=== PATIENT | female | born 1945 | race Caucasian/White ===

== ENCOUNTER → 2018-01-10 09:24 | Outpatient (CLI) | payer MEDICARE, SELFPAY ==
[2018-01-10 10:13] LABS: Basophils # 0.1 K/mm3 (0-0.2); Basophils % 0.6 % (0.1-2.0); Eosinophils # 0.1 K/mm3 (0.0-0.4); Eosinophils % 1.4 % (0.1-12.0); Hematocrit 29.2 % (37.0-47.0); Hemoglobin 9.3 g/dL (12.2-16.2); Lymphocytes # 1.8 K/mm3 (0.7-4.5); Lymphocytes % 21.4 K/mm3 (10-50); Mean Corpuscular HGB Conc 31.8 g/dL (31.8-35.4); Mean Corpuscular Hemoglobin 26.7 pg (27.0-31.2); Mean Corpuscular Volume 83.7 fl (81-99); Mean Platelet Volume 9.4 fl (7.4-10.4); Monocytes # 0.6 K/mm3 (0.1-1.0); Monocytes % 6.5 % (1.7-9.3); Neutrophils # 5.9 K/mm3 (1.8-7.8); Platelet Count 384 K/mm3 (142-424); Red Blood Count 3.49 M/mm3 (4.20-5.40); Red Cell Distribution Width 14.3 % (11.5-17.5); White Blood Count 8.4 K/mm3 (4.8-10.8)
[2018-01-10 11:31] LABS: Alanine Aminotransferase 16 U/L (12-78); Albumin Level 3.5 gm/dL (3.4-5.0); Albumin/Globulin Ratio 0.9 (1.1-1.8); Alkaline Phosphatase 104 U/L (46-116); Aspartate Amino Transferase 12 U/L (15-37); Bilirubin,Total 0.4 mg/dL (0.2-1.0); Blood Urea Nitrogen 13 mg/dL (7-18); C-Reactive Protein 2.2 mg/L (0.0-0.9); Calcium 9.5 mg/dL (8.5-10.1); Carbon Dioxide 26 mmol/L (21.0-32.0); Chloride 95 mmol/L (98-107); Creatinine,Serum 0.76 mg/dL (0.55-1.02); Estimated Glomerular Filt Rate 75 ml/min (>60); Ferritin 14 ng/mL (8-388); GFR (African American) 91 ML/MIN (>60); Globulin 3.7 gm/dl (1.3-3.2); Glucose 162 mg/dL (74-106); Sodium 129 mmol/L (136-145); Total Protein,Serum 7.2 gm/dL (6.4-8.2)
[2018-01-10 12:06] LABS: Erythrocyte Sedimentation Rate 59 mm/hr (0-30)
[2018-01-11 08:31] LABS: Iron 116 ug/dL (27-139); UIBC 347 ug/dL (118-369)
[2018-01-11 10:16] LABS: Iron Saturation 25 % (15-55); Vitamin B12 383 pg/mL (232-1245); Vitamin D 25 Hydroxy 23.6 ng/mL (30.0-100.0)
[2018-01-12 17:16] LABS: Cytoplasmic (C-ANCA) <1:20 titer (Neg:<1:20)
[2018-01-12 18:41] LABS: Perinuclear (P-ANCA) <1:20 titer (Neg:<1:20)
== END ==
PROVIDERS: PCP Family Medicine; Visit Provider Nurse Practitioner Acute Care
DX: K56.690 Other partial intestinal obstruction (principal); D64.9 Anemia, unspecified
CPT/HCPCS: 36415; 80053; 82607; 82652; 82728; 83540; 83550; 85025; 85651; 86140; 86256; 86671

== ENCOUNTER → 2018-03-15 11:34 | Outpatient (CLI) | payer MEDICARE, SELFPAY ==
--- NOTE | 2018-03-15 11:39 | XR_ITS ---
EXAM: XR lumbar spine min 4V HISTORY: Low back pain ITS.REASON: LUMBAGO ORDERING PHYSICIAN: Hollie Henry PATIENT AGE: 72 years COMPARISON: None FINDINGS: There is mild levoscoliosis. Multilevel degenerative disc disease is present from L2 to S1 most severe at L2-L3 with endplate sclerosis and subchondral cystic changes. There is mild retrolisthesis of L2 on L3 of 5 mm. Facet sclerotic changes are also present from L2 to S1 suggesting facet arthritic change. No fracture or dislocation. No lytic or blastic change. Incidental note is made of gallstones. IMPRESSION: 1. Lumbar spondylosis with degenerative disc disease worse at L2-L3 with associated facet arthritic change. 2. Cholelithiasis
== END ==
PROVIDERS: PCP Family Medicine; Visit Provider Nurse Practitioner
DX: M54.41 Lumbago with sciatica, right side (principal); M54.42 Lumbago with sciatica, left side
CPT/HCPCS: 72110

== ENCOUNTER → 2018-07-25 14:00 | Outpatient (CLI) | payer MEDICARE, SELFPAY ==
--- NOTE | 2018-07-25 14:03 | MR_ITS ---
MR lumbar spine wo con, MR 3-d myelogram/MRCP HISTORY: LBP [id number]. No HX Lumbar surgery. No injury. ITS.REASON: LUMBAGO WITH SCIATICA ORDERING PHYSICIAN: Taqueria Angel MD PATIENT AGE: 72 years Comparison: X-RAY 03-15-18 TECHNIQUE: Standard multiplanar multiecho sequences are performed without contrast. 3-D MIP and myelographic images are also rendered and reviewed FINDINGS: There is normal alignment. The spinal cord ends at the L1 level. L1-L2: Degenerative disc disease with bulging disc with facet and ligamentum hypertrophy with mild bilateral lateral recess and foraminal narrowing. L2-L3: Severe degenerative disc disease with type I endplate changes and endplate osteophyte formation. There is 4 mm retrolisthesis of L2 on L3 with bulging disc along with facet and ligamentum hypertrophy with moderate bilateral lateral recess narrowing and moderate bilateral foraminal narrowing greater on the right. There is canal stenosis at this level at 8 mm. L3-L4: Degenerative disc disease with bulging disc with moderate facet and ligamentum flavum hypertrophy with moderate bilateral lateral recess and foraminal narrowing and borderline narrowing of the canal L4-L5: Degenerative disc disease with concentric bulging disc which is eccentric toward the left with moderate to severe bilateral lateral recess and foraminal narrowing which is greater on the left. There is minimal anterolisthesis of L4 on L5 of 2 to 3 mm. There is canal stenosis at this level L5-S1: Bulging disc with facet and ligamentum flavum hypertrophy with moderate to severe foraminal narrowing on the left and moderate foraminal narrowing on the right from facet hypertrophic change and the bulging disc. No extruded herniated disc. IMPRESSION: Abnormal MRI lumbar spine with multilevel lumbar spondylosis from L1 to S1 with degenerative disc disease, bulging discs, facet and ligamentum hypertrophy, lateral recess and foraminal narrowing as well as canal stenosis. Please see above for detailed description at each level. The canal narrowing is most severe at L4-L5. No extruded herniated disc evident.
== END ==
PROVIDERS: PCP Family Medicine; Visit Provider Family Medicine
DX: M54.42 Lumbago with sciatica, left side (principal)
CPT/HCPCS: 72148; 76376

== ENCOUNTER → 2018-12-03 12:55 | Outpatient (POV) | payer MEDICARE, SELFPAY ==
[2018-12-03 13:12] VITALS: BP 183/65; PULSE 79; RESP 18; O2SAT 98; BMI 29.8
--- NOTE | 2018-12-04 16:15 | HMH.PMCON ---
Assessment and Plan (1) Facet arthropathy Current visit: Yes Status: Chronic Category: Medical Code(s): M47.819 - Spondylosis without myelopathy or radiculopathy, site unspecified (2) Spondylosis Current visit: Yes Status: Chronic Category: Medical Code(s): M47.9 - Spondylosis, unspecified (3) Degenerative disc disease Current visit: Yes Status: Chronic Category: Medical - Assessment and plan all Dx Assessment and Plan for all problems:: We will schedule the patient for medial branch block at L4-5 L5-S1 bilaterally. I believe would be beneficial given her symptomology. She is failed chiropractic therapy, medications, anti-inflammatories. She is continuing a home stretching program. She is not on any blood thinners. We will follow-up with the patient after injection reassess her symptoms at that time. Dr. Sebastian has reviewed this note and agrees with this plan of care. This note was dictated using voice recognition software and may contain errors or omissions HPI - Data of Consult Consult date: 12/03/18 Requesting Physician: Amber Caceres APRN Primary Care Provider: Taqueria Angel MD - Consult Narrative Reason for consult: Back pain History of present illness: Ms. Carpio is a 73 year old female who presents today for consultation in regards to her back pain. She had a sudden onset of it and now it intermittently comes and goes. She states hot showers decrease her pain well activity increases her pain she rates her pain a 6 out of 10. She has moderate relief from her chiropractor. Patient does have a MRI showing degenerative disc disease, spondylosis, ligamentum flavum hypertrophy. Patient has been seen by Dr. Heaton and was referred to us for injection therapy. Patient is currently on gabapentin. She is been taking anti-inflammatories with no success. Patient has no radiation of pain. Turning and twisting makes her pain much worse she is a positive Kemps test and positive facet loading. CC: Amber Caceres APRN [facility] History I have reviewed the patient's past medical history: Yes Medical History: Reports:: Diabetes Mellitus Type 2, Hypertension, Lung Disease Denies:: Diabetes Mellitus Type 1, Internal Pacemaker, Seizures *Have you ever received a pneumonia vaccine?: Yes *Have you received a flu vaccine this season?: Yes Other Surgeries: No: Pacemaker Amputation: No Fractures: No - *Social History Smoking Status: Never smoker Alcohol Intake: never Alcohol Intake Frequency:: holidays/special occasions only *Occupational Status:: other Housing: house Household Members: other *Travel in the last 8 weeks: None Family Hx:: Unable to obtain Review of Systems - Review of Systems ROS General: no recent weight change, no fever, no sleep disturbances Respiratory: no cough, no shortness of air, no recurring pulmonary infections Cardiovascular/Peripheral Vascular: No chest pain, No palpitations, no edema, no shortness of breath. Gastrointestinal: no incontinence, normal bowel movements reported Genitourinary: no incontinence Musculoskeletal: Back pain Psychiatric: normal mood/ affect Neurological: [denies weakness in extremities], [denies balance issues] Meds Home Medications Medication Instructions Recorded Confirmed Type albuterol 90 mcg/actuation aerosol 1 puff INHALATION NEEDED PRN 12/01/17 01/19/18 History inhaler budesonide-formoterol HFA 160 2 puff INHALATION BID 12/01/17 01/19/18 History mcg-4.5 mcg/actuation aerosol inhaler ferrous sulfate 325 mg (65 mg 325 mg PO DAILY tab 12/01/17 01/19/18 History iron) tablet gemfibrozil 600 mg tablet 600 mg PO BID 12/01/17 01/19/18 History levothyroxine 25 mcg capsule 25 mcg PO DAILY 12/01/17 01/19/18 History lisinopril 10 mg tablet 10 mg PO DAILY 12/01/17 01/19/18 History metformin 500 mg tablet 500 mg PO BID 12/01/17 01/19/18 History omeprazole 40 mg capsule,delayed 40 mg PO DAILY
--- NOTE | 2018-12-04 16:21 | P.CONS_ITS ---
Assessment and Plan (1) Facet arthropathy Current visit: Yes Status: Chronic Category: Medical Code(s): M47.819 - Spondylosis without myelopathy or radiculopathy, site unspecified (2) Spondylosis Current visit: Yes Status: Chronic Category: Medical Code(s): M47.9 - Spondylosis, unspecified (3) Degenerative disc disease Current visit: Yes Status: Chronic Category: Medical - Assessment and plan all Dx Assessment and Plan for all problems:: We will schedule the patient for medial branch block at L4-5 L5-S1 bilaterally. I believe would be beneficial given her symptomology. She is failed chiropractic therapy, medications, anti-inflammatories. She is continuing a home stretching program. She is not on any blood thinners. We will follow-up with the patient after injection reassess her symptoms at that time. Dr. Sebastian has reviewed this note and agrees with this plan of care. This note was dictated using voice recognition software and may contain errors or omissions HPI - Data of Consult Consult date: 12/03/18 Requesting Physician: Amber Caceres APRN Primary Care Provider: Taqueria Angel MD - Consult Narrative Reason for consult: Back pain History of present illness: Ms. Carpio is a 73 year old female who presents today for consultation in regards to her back pain. She had a sudden onset of it and now it intermittently comes and goes. She states hot showers decrease her pain well activity increases her pain she rates her pain a 6 out of 10. She has moderate relief from her chiropractor. Patient does have a MRI showing degenerative disc disease, spondylosis, ligamentum flavum hypertrophy. Patient has been seen by Dr. Heaton and was referred to us for injection therapy. Patient is currently on gabapentin. She is been taking anti-inflammatories with no success. Patient has no radiation of pain. Turning and twisting makes her pain much worse she is a positive Kemps test and positive facet loading. CC: Amber Caceres APRN [facility] History I have reviewed the patient's past medical history: Yes Medical History: Reports:: Diabetes Mellitus Type 2, Hypertension, Lung Disease Denies:: Diabetes Mellitus Type 1, Internal Pacemaker, Seizures *Have you ever received a pneumonia vaccine?: Yes *Have you received a flu vaccine this season?: Yes Other Surgeries: No: Pacemaker Amputation: No Fractures: No - *Social History Smoking Status: Never smoker Alcohol Intake: never Alcohol Intake Frequency:: holidays/special occasions only *Occupational Status:: other Housing: house Household Members: other *Travel in the last 8 weeks: None Family Hx:: Unable to obtain Review of Systems - Review of Systems ROS General: no recent weight change, no fever, no sleep disturbances Respiratory: no cough, no shortness of air, no recurring pulmonary infections Cardiovascular/Peripheral Vascular: No chest pain, No palpitations, no edema, no shortness of breath. Gastrointestinal: no incontinence, normal bowel movements reported Genitourinary: no incontinence Musculoskeletal: Back pain Psychiatric: normal mood/ affect Neurological: [denies weakness in extremities], [denies balance issues] Meds Home Medications Medication Instructions Recorded Confirmed Type albuterol 90 mcg/actuation aerosol 1 puff INHALATION NEEDED PRN 12/01/17 01/19/18 History inhaler budesonide-formoterol HFA 160 2 puff INHALATION BID 12/01/17 01/19/18 Hi
== END ==
PROVIDERS: PCP Family Medicine; Visit Provider Clinical Nurse Specialist Family Health
DX: M47.819 Spondylosis without myelopathy or radiculopathy, site unspecified (principal); M47.816 Spondylosis without myelopathy or radiculopathy, lumbar region
CPT/HCPCS: 99202

== ENCOUNTER → 2019-01-07 10:33 | Outpatient (POV) | payer MEDICARE, SELFPAY ==
[2019-01-07 11:03] VITALS: BP 127/61; PULSE 79; RESP 18; O2SAT 98; BMI 28.0
--- NOTE | 2019-01-07 12:48 | P.CONS_ITS ---
[facility] Pain Management SOAP Note Subjective:: Patient is a pleasant 73-year-old white female who presents today for follow-up after medial branch block. Patient rates her pain a 0 out of 10. Overall doing extremely well she has some stiffness she discussed chiropractors and massage therapy with me. At this time patient would like to see how long her medial branch block lasts for her. I discussed both repeat injections and rhizotomy. ROS General: no recent weight change, no fever, no sleep disturbances Respiratory: no cough, no shortness of air, no recurring pulmonary infections Cardiovascular/Peripheral Vascular: No chest pain, No palpitations, no edema, no shortness of breath. Gastrointestinal: no incontinence, normal bowel movements reported Genitourinary: no incontinence Musculoskeletal: Back pain Psychiatric: normal mood/ affect Neurological: [denies weakness in extremities], [denies balance issues] Objective:: Physical Exam General: Alert and oriented x3, no acute distress, pleasant and cooperative, [on room air] Lungs: Resps E/U, Symmetrical chest expansion, Eyes: PERRL Musculoskeletal: Flexion and extension of lumbar spine somewhat guarded secondary to pain, deep tendon reflexes normal, strength in upper and lower extremities [5/5], [abnormal gait noted] positive Kemps test bilateral lumbar facet loading Neurological: speech clear, nutter up equal, no gross sensory deficits Assessment:: Degenerative disc disease lumbar spine with lumbar spondylosis and facet arthropathy Plan:: Patient is going to see how long this medial branch block last for her we will schedule I month follow-up to see how she is doing. She is been instructed to call the office if she has any issues prior to this. Moving forward she may need another medial branch block in the future. Dr. Sebastian has reviewed this note and agrees with this plan of care. This note was dictated using voice recognition software and may contain errors or omissions [facility] History I have reviewed the patient's past medical history: Yes Medical History: Reports:: Diabetes Mellitus Type 2, Hypertension, Lung Disease Denies:: Cancer, Diabetes Mellitus Type 1, Internal Pacemaker, Seizures *Have you ever received a pneumonia vaccine?: Yes *Have you received a flu vaccine this season?: No Other Medical History: Denies: Blood Transfusion Reaction Other Surgeries: No: Pacemaker Amputation: No Fractures: No - *Social History Smoking Status: Never smoker Alcohol Intake: current Alcohol Intake Frequency:: holidays/special occasions only *Occupational Status:: other Housing: house Household Members: other *Travel in the last 8 weeks: None Family Hx:: Cancer
== END ==
PROVIDERS: PCP Family Medicine; Visit Provider Clinical Nurse Specialist Family Health
DX: M51.36 Other intervertebral disc degeneration, lumbar region (principal); M47.816 Spondylosis without myelopathy or radiculopathy, lumbar region; M54.06 Panniculitis affecting regions of neck and back, lumbar region; E11.9 Type 2 diabetes mellitus without complications; I10 Essential (primary) hypertension
CPT/HCPCS: 99212

== ENCOUNTER → 2020-10-12 12:28 | Outpatient (CLI) | payer MEDICARE, SELFPAY ==
--- NOTE | 2020-10-12 12:32 | XR_ITS ---
PROCEDURE: XR CHEST PORTABLE CLINICAL HISTORY: COVID OUTPATIENT COMPARISON: CR CXR CHEST(2 VIEWS-NOT PORTABLE) from 07/15/2015 FINDINGS: The cardiomediastinal silhouette and pulmonary vascularity are within normal limits. The lungs are clear without infiltrates, suspicious nodules, or pleural effusions. No acute bony abnormalities. IMPRESSION: No acute findings. Dictated by: Jovita Evangelista 10/12/2020 12:48 Jovita Evangelista in OV 10/12/2020 12:48
[2020-10-12 13:19] LABS: Adenovirus,PCR Not Detected (NotDetected); Bordetella Pertussis Not Detected (NotDetected); Chlamydophila Pneumoniae, PCR Not Detected (NotDetected); Coronavirus 229E Not Detected (NotDetected); Coronavirus NL63 Not Detected (NotDetected); Coronavirus OC43 Not Detected (NotDetected); Coronovirus HKU1,PCR Not Detected (NotDetected); Human Metapneumovirus Not Detected (NotDetected); Influenza A, PCR Not Detected (NotDetected); Influenza AH1, 2009 Not Detected (NotDetected); Influenza AH1, PCR Not Detected (NotDetected); Influenza AH3,PCR Not Detected (NotDetected); Influenza B, PCR Not Detected (NotDetected); Mycoplasma Pneumoniae, PCR Not Detected (NotDetected); Parainfluenza 1, PCR Not Detected (NotDetected); Parainfluenza 2, PCR Not Detected (NotDetected); Parainfluenza 3, PCR Not Detected (NotDetected); Parainfluenza 4, PCR Not Detected (NotDetected); Respiratory Syncytial Virus Not Detected (NotDetected); Rhinovirus/Enterovirus Not Detected (NotDetected)
[2020-10-12 15:04] LABS: Coronavirus 19, PCR Detected (NotDetected)
== END ==
PROVIDERS: PCP Family Medicine; Visit Provider Nurse Practitioner
DX: U07.1 COVID-19; Z20.822 Contact with and (suspected) exposure to COVID-19
CPT/HCPCS: 71045; 87581; 87633; 87798

== ENCOUNTER → 2020-10-13 10:16 | Outpatient (CLI) | payer MEDICARE, SELFPAY ==
[2020-10-13] VITALS (8 sets, daily range): BP systolic 145–169; BP diastolic 61–71; PULSE 65–74; RESP 15–18; TEMP 36.6–36.7; O2SAT 94–98
== END ==
PROVIDERS: PCP Nurse Practitioner; Visit Provider Nurse Practitioner
DX: U07.1 COVID-19 (principal)
CPT/HCPCS: 96365

== ENCOUNTER 2020-11-03 08:15 | Day surgery (SDC) | payer MEDICARE, SELFPAY ==
[2020-10-29 15:08] VITALS: BMI 26.6
[2020-11-03 09:39] VITALS: BP 147/60; PULSE 64; RESP 18; TEMP 36.2; O2SAT 96
[2020-11-03 09:58] LABS: POC Glucose,Bedside 142 (70-110)
[2020-11-03 11:05] VITALS: BP 178/70; PULSE 55; RESP 16; O2SAT 98
[2020-11-03 11:10] VITALS: BP 164/72; PULSE 58; RESP 16; O2SAT 100
[2020-11-03 11:15] VITALS: BP 153/72; PULSE 58; RESP 16; O2SAT 99
[2020-11-03 11:20] VITALS: BP 162/81; PULSE 55; RESP 16; O2SAT 99
[2020-11-03 11:23] VITALS: BP 145/70; PULSE 64; RESP 16; TEMP 36.6; O2SAT 99
== END 2020-11-03 11:44 | disposition home or self-care (01) ==
LOC: OR 08:17
PROVIDERS: PCP Family Medicine; Visit Provider Ophthalmology
DX: H25.813 Combined forms of age-related cataract, bilateral (principal); H53.149 Visual discomfort, unspecified; D23.111 Other benign neoplasm of skin of right upper eyelid, including canthus; E11.9 Type 2 diabetes mellitus without complications; I10 Essential (primary) hypertension; E78.5 Hyperlipidemia, unspecified; E03.9 Hypothyroidism, unspecified; Z79.84 Long term (current) use of oral hypoglycemic drugs; Z79.899 Other long term (current) drug therapy
CPT/HCPCS: 66984; 82962; V2632

== ENCOUNTER 2020-11-17 07:03 | Day surgery (SDC) | payer MEDICARE, SELFPAY ==
[2020-11-11 13:32] VITALS: BMI 25.8
[2020-11-17] VITALS (7 sets, daily range): BP systolic 141–192; BP diastolic 65–80; PULSE 58–69; RESP 16; TEMP 36.3–36.4; O2SAT 96–100
--- NOTE | 2020-11-17 09:30 | SUR.OPER ---
During procedure, Dr. Frances removed a right upper eyelid lesion. Lesion sent for pathology.
== END 2020-11-17 09:31 | disposition home or self-care (01) ==
LOC: OR 07:04
PROVIDERS: PCP Family Medicine; Visit Provider Ophthalmology
DX: H25.813 Combined forms of age-related cataract, bilateral (principal); D23.111 Other benign neoplasm of skin of right upper eyelid, including canthus; L91.0 Hypertrophic scar; E11.9 Type 2 diabetes mellitus without complications; Z79.899 Other long term (current) drug therapy; Z79.84 Long term (current) use of oral hypoglycemic drugs
CPT/HCPCS: 66984; 67840; 88305; V2632

== ENCOUNTER → 2021-03-18 09:21 | Outpatient (CLI) | payer MEDICARE, SELFPAY ==
[2021-03-18 09:49] LABS: Adenovirus,PCR Not Detected (NotDetected); Bordetella Pertussis Not Detected (NotDetected); Chlamydophila Pneumoniae, PCR Not Detected (NotDetected); Coronavirus 19, PCR Not Detected (NotDetected); Coronavirus 229E Not Detected (NotDetected); Coronavirus NL63 Not Detected (NotDetected); Coronavirus OC43 Not Detected (NotDetected); Coronovirus HKU1,PCR Not Detected (NotDetected); Human Metapneumovirus Not Detected (NotDetected); Influenza A, PCR Not Detected (NotDetected); Influenza AH1, 2009 Not Detected (NotDetected); Influenza AH1, PCR Not Detected (NotDetected); Influenza AH3,PCR Not Detected (NotDetected); Influenza B, PCR Not Detected (NotDetected); Mycoplasma Pneumoniae, PCR Not Detected (NotDetected); Parainfluenza 1, PCR Not Detected (NotDetected); Parainfluenza 2, PCR Not Detected (NotDetected); Parainfluenza 3, PCR Not Detected (NotDetected); Parainfluenza 4, PCR Not Detected (NotDetected); Rhinovirus/Enterovirus Not Detected (NotDetected)
[2021-03-18 10:03] LABS: Basophils # 0.1 K/mm3 (0-0.2); Basophils % 0.9 % (0.1-2.0); Eosinophils % 0.1 % (0.1-12.0); Hematocrit 41.1 % (37.0-47.0); Hemoglobin 13.4 g/dL (12.2-16.2); Lymphocytes # 1.5 K/mm3 (0.7-4.5); Lymphocytes % 27.1 % (10-50); Mean Corpuscular HGB Conc 32.5 g/dL (31.8-35.4); Mean Corpuscular Hemoglobin 31.8 pg (27.0-31.2); Mean Corpuscular Volume 97.7 fl (81-99); Mean Platelet Volume 8.9 fl (7.4-10.4); Monocytes # 0.3 K/mm3 (0.1-1.0); Monocytes % 4.9 % (1.7-9.3); Neutrophils # 3.8 K/mm3 (1.8-7.8); Neutrophils % 67.1 % (37.0-80.0); Platelet Count 398 K/mm3 (142-424); Red Cell Distribution Width 13.4 % (11.5-17.5); White Blood Count 5.6 K/mm3 (4.8-10.8)
[2021-03-18 12:04] LABS: Respiratory Syncytial Virus Detected (NotDetected)
== END ==
PROVIDERS: PCP Family Medicine; Visit Provider Nurse Practitioner
DX: Z20.822 Contact with and (suspected) exposure to COVID-19 (principal); B97.4 Respiratory syncytial virus as the cause of diseases classified elsewhere
CPT/HCPCS: 36415; 85025; 87581; 87632; 87798; C9803; U0003; U0005

== ENCOUNTER → 2022-01-12 08:45 | Outpatient (CLI) | payer MEDICARE, SELFPAY ==
[2022-01-12 19:51] LABS: Basophils # 0.1 K/mm3 (0-0.2); Basophils % 1.2 % (0.1-2.0); Eosinophils # 0.5 K/mm3 (0.0-0.4); Eosinophils % 7.3 % (0.1-12.0); Hematocrit 43.2 % (37.0-47.0); Hemoglobin 13.3 g/dL (12.2-16.2); Lymphocytes # 2.4 K/mm3 (0.7-4.5); Lymphocytes % 37.5 % (10-50); Mean Corpuscular HGB Conc 30.7 g/dL (31.8-35.4); Mean Corpuscular Hemoglobin 30.5 pg (27.0-31.2); Mean Corpuscular Volume 99.4 fl (81-99); Mean Platelet Volume 10.7 fl (7.4-10.4); Monocytes # 0.3 K/mm3 (0.1-1.0); Monocytes % 5.3 % (1.7-9.3); Neutrophils # 3.2 K/mm3 (1.8-7.8); Neutrophils % 48.6 % (37.0-80.0); Platelet Count 464 K/mm3 (142-424); Red Blood Count 4.35 M/mm3 (4.20-5.40); Red Cell Distribution Width 13.5 % (11.5-17.5); White Blood Count 6.5 K/mm3 (4.8-10.8)
[2022-01-12 20:08] LABS: Alanine Aminotransferase 15 U/L (12-78); Albumin Level 4.3 g/dl (3.5-5.0); Albumin/Globulin Ratio 1.5 (1.1-1.8); Alkaline Phosphatase 110 U/L (38-126); Anion Gap 18.1 mEq/L (5-15); Aspartate Amino Transferase 20 U/L (14-36); Bilirubin,Total 0.6 mg/dl (0.2-1.3); Blood Urea Nitrogen 23 mg/dl (7-17); Carbon Dioxide 25 mmol/L (22.0-30.0); Chloride 101 mmol/L (98-107); Cholesterol 182 mg/dl (140-200); Estimated Glomerular Filt Rate 61 ml/min (>60); GFR (African American) 74 ML/MIN (>60); Globulin 2.9 g/dL (1.3-3.2); Glucose 180 mg/dl (74-100); HDL Cholesterol 61 mg/dl (40-60); Potassium 4.1 mmoL/L (3.5-5.1); Sodium 140 mmol/L (136-145); Total Protein,Serum 7.2 g/dl (6.3-8.2); Triglycerides 183 mg/dl (30-150); VLDL Cholesterol 37 mg/dL (0-40)
[2022-01-12 20:19] LABS: Direct LDL Cholesterol 82.39 mg/dL (100-129)
[2022-01-12 20:24] LABS: Free T4 (Free Thyroxine) 1.11 ng/dl (0.78-2.19)
[2022-01-12 20:25] LABS: 25-OH Vitamin D, Total 30.8 ng/mL (30-100)
[2022-01-12 20:38] LABS: Thyroid Stimulating Hormone 2.84 uIU/mL (0.465-4.68)
[2022-01-12 20:57] LABS: Vitamin B12 803 pg/mL (239-931)
== END ==
PROVIDERS: PCP Nurse Practitioner; Visit Provider Nurse Practitioner
DX: E11.9 Type 2 diabetes mellitus without complications (principal); E55.9 Vitamin D deficiency, unspecified; E78.5 Hyperlipidemia, unspecified; I10 Essential (primary) hypertension; E03.9 Hypothyroidism, unspecified; Z79.84 Long term (current) use of oral hypoglycemic drugs
CPT/HCPCS: 80053; 80061; 82306; 82607; 84439; 84443; 85025

== ENCOUNTER → 2022-01-24 11:25 | Outpatient (CLI) | payer MEDICARE, SELFPAY ==
[2022-01-24 18:38] LABS: Adenovirus,PCR Not Detected (NotDetected); Bordetella Pertussis Not Detected (NotDetected); Chlamydophila Pneumoniae, PCR Not Detected (NotDetected); Coronavirus 19, PCR Not Detected (NotDetected); Coronavirus 229E Not Detected (NotDetected); Coronavirus NL63 Not Detected (NotDetected); Coronavirus OC43 Not Detected (NotDetected); Coronovirus HKU1,PCR Not Detected (NotDetected); Human Metapneumovirus Not Detected (NotDetected); Influenza A, PCR Not Detected (NotDetected); Influenza AH1, 2009 Not Detected (NotDetected); Influenza AH1, PCR Not Detected (NotDetected); Influenza AH3,PCR Not Detected (NotDetected); Influenza B, PCR Not Detected (NotDetected); Mycoplasma Pneumoniae, PCR Not Detected (NotDetected); Parainfluenza 1, PCR Not Detected (NotDetected); Parainfluenza 2, PCR Not Detected (NotDetected); Parainfluenza 3, PCR Not Detected (NotDetected); Parainfluenza 4, PCR Not Detected (NotDetected); Respiratory Syncytial Virus Not Detected (NotDetected); Rhinovirus/Enterovirus Not Detected (NotDetected)
[2022-01-24 18:54] LABS: Basophils # 0.1 K/mm3 (0-0.2); Basophils % 1.1 % (0.1-2.0); Eosinophils # 0.6 K/mm3 (0.0-0.4); Eosinophils % 7.4 % (0.1-12.0); Hematocrit 40.2 % (37.0-47.0); Hemoglobin 12.8 g/dL (12.2-16.2); Lymphocytes # 2.7 K/mm3 (0.7-4.5); Lymphocytes % 36.1 % (10-50); Mean Corpuscular HGB Conc 31.9 g/dL (31.8-35.4); Mean Corpuscular Hemoglobin 31.1 pg (27.0-31.2); Mean Corpuscular Volume 97.5 fl (81-99); Monocytes # 0.4 K/mm3 (0.1-1.0); Monocytes % 5.7 % (1.7-9.3); Neutrophils # 3.7 K/mm3 (1.8-7.8); Neutrophils % 49.7 % (37.0-80.0); Platelet Count 417 K/mm3 (142-424); Red Blood Count 4.13 M/mm3 (4.20-5.40); Red Cell Distribution Width 13.3 % (11.5-17.5); White Blood Count 7.4 K/mm3 (4.8-10.8)
== END ==
PROVIDERS: PCP Nurse Practitioner; Visit Provider Nurse Practitioner
DX: J01.00 Acute maxillary sinusitis, unspecified (principal); M47.819 Spondylosis without myelopathy or radiculopathy, site unspecified; R42 Dizziness and giddiness
CPT/HCPCS: 85025; 87581; 87632; 87798; C9803; U0003; U0005

== ENCOUNTER → 2022-03-24 11:52 | Outpatient (CLI) | payer MEDICARE, SELFPAY ==
[2022-03-24 18:56] LABS: Adenovirus,PCR Not Detected (NotDetected); Bordetella Pertussis Not Detected (NotDetected); Chlamydophila Pneumoniae, PCR Not Detected (NotDetected); Coronavirus 19, PCR Not Detected (NotDetected); Coronavirus 229E Not Detected (NotDetected); Coronavirus NL63 Not Detected (NotDetected); Coronavirus OC43 Not Detected (NotDetected); Coronovirus HKU1,PCR Not Detected (NotDetected); Human Metapneumovirus Not Detected (NotDetected); Influenza A, PCR Not Detected (NotDetected); Influenza AH1, 2009 Not Detected (NotDetected); Influenza AH1, PCR Not Detected (NotDetected); Influenza AH3,PCR Not Detected (NotDetected); Influenza B, PCR Not Detected (NotDetected); Mycoplasma Pneumoniae, PCR Not Detected (NotDetected); Parainfluenza 1, PCR Not Detected (NotDetected); Parainfluenza 2, PCR Not Detected (NotDetected); Parainfluenza 3, PCR Not Detected (NotDetected); Parainfluenza 4, PCR Not Detected (NotDetected); Respiratory Syncytial Virus Not Detected (NotDetected)
[2022-03-24 19:07] LABS: Basophils # 0.1 K/mm3 (0-0.2); Basophils % 1.2 % (0.1-2.0); Eosinophils # 0.6 K/mm3 (0.0-0.4); Eosinophils % 8.8 % (0.1-12.0); Hematocrit 42.3 % (37.0-47.0); Hemoglobin 12.7 g/dL (12.2-16.2); Lymphocytes # 2.1 K/mm3 (0.7-4.5); Lymphocytes % 31.3 % (10-50); Mean Corpuscular Volume 100.2 fl (81-99); Mean Platelet Volume 10.3 fl (7.4-10.4); Monocytes # 0.4 K/mm3 (0.1-1.0); Monocytes % 5.9 % (1.7-9.3); Neutrophils # 3.6 K/mm3 (1.8-7.8); Neutrophils % 52.8 % (37.0-80.0); Platelet Count 470 K/mm3 (142-424); Red Blood Count 4.22 M/mm3 (4.20-5.40); Red Cell Distribution Width 13.3 % (11.5-17.5); White Blood Count 6.8 K/mm3 (4.8-10.8)
[2022-03-25 03:21] LABS: Rhinovirus/Enterovirus Detected (NotDetected)
== END ==
PROVIDERS: PCP Nurse Practitioner; Visit Provider Nurse Practitioner
DX: J06.9 Acute upper respiratory infection, unspecified (principal); J32.9 Chronic sinusitis, unspecified; B34.1 Enterovirus infection, unspecified
CPT/HCPCS: 85025; 87581; 87632; 87798; C9803; U0003; U0005

== ENCOUNTER → 2022-07-13 23:09 | Outpatient (CLI) | payer MEDICARE, SELFPAY ==
[2022-07-13 18:59] LABS: Alanine Aminotransferase 16 U/L (12-78); Albumin Level 4.2 g/dl (3.5-5.0); Albumin/Globulin Ratio 1.6 (1.1-1.8); Alkaline Phosphatase 73 U/L (38-126); Anion Gap 13.3 mEq/L (5-15); Aspartate Amino Transferase 19 U/L (14-36); Bilirubin,Total 0.5 mg/dl (0.2-1.3); Blood Urea Nitrogen 25 mg/dl (7-17); Calcium 9.4 mg/dl (8.4-10.2); Carbon Dioxide 24 mmol/L (22.0-30.0); Chloride 107 mmol/L (98-107); Chol/HDL Ratio 3.5 (1-3.5); Cholesterol 186 mg/dl (140-200); Estimated Glomerular Filt Rate 61 ml/min (>60); GFR (African American) 74 ML/MIN (>60); Globulin 2.6 g/dL (1.3-3.2); Glucose 187 mg/dl (74-100); HDL Cholesterol 53 mg/dl (40-60); Potassium 4.3 mmoL/L (3.5-5.1); Sodium 140 mmol/L (136-145); Total Protein,Serum 6.8 g/dl (6.3-8.2); Triglycerides 196 mg/dl (30-150); VLDL Cholesterol 39 mg/dL (0-40)
[2022-07-13 19:10] LABS: Direct LDL Cholesterol 91.88 mg/dL (100-129)
[2022-07-13 19:17] LABS: Free T4 (Free Thyroxine) 1.16 ng/dl (0.78-2.19)
[2022-07-13 19:31] LABS: Thyroid Stimulating Hormone 2.75 uIU/mL (0.465-4.68)
[2022-07-13 19:48] LABS: Microalbumin/Creatinine Ratio 158.5
[2022-07-13 19:55] LABS: Creatinine,Urine Random 34 mg/dL (Not Estab.)
[2022-07-13 21:14] LABS: Hemoglobin A1C 8.2 % (4.0-6.0)
== END ==
PROVIDERS: PCP Nurse Practitioner; Visit Provider Nurse Practitioner
DX: E03.9 Hypothyroidism, unspecified (principal); E11.9 Type 2 diabetes mellitus without complications; E78.5 Hyperlipidemia, unspecified; I10 Essential (primary) hypertension; Z79.84 Long term (current) use of oral hypoglycemic drugs
CPT/HCPCS: 80053; 80061; 82043; 82570; 83036; 84439; 84443

== ENCOUNTER → 2022-08-25 20:41 | Outpatient (CLI) | payer MEDICARE, SELFPAY ==
[2022-08-25 19:05] LABS: Basophils # 0.1 K/mm3 (0-0.2); Basophils % 0.9 % (0.1-2.0); Eosinophils # 0.6 K/mm3 (0.0-0.4); Eosinophils % 8.8 % (0.1-12.0); Hematocrit 40.4 % (37.0-47.0); Hemoglobin 13.2 g/dL (12.2-16.2); Lymphocytes # 2.1 K/mm3 (0.7-4.5); Lymphocytes % 33.3 % (10-50); Mean Corpuscular HGB Conc 32.7 g/dL (31.8-35.4); Mean Platelet Volume 10.7 fl (7.4-10.4); Monocytes # 0.5 K/mm3 (0.1-1.0); Monocytes % 8.4 % (1.7-9.3); Neutrophils % 48.6 % (37.0-80.0); Platelet Count 277 K/mm3 (142-424); Red Blood Count 4.26 M/mm3 (4.20-5.40); Red Cell Distribution Width 13.1 % (11.5-17.5); White Blood Count 6.3 K/mm3 (4.8-10.8)
[2022-08-25 19:55] LABS: Erythrocyte Sedimentation Rate 16 mm/hr (0-30)
[2022-08-25 20:33] LABS: Alanine Aminotransferase 18 U/L (12-78); Albumin Level 4.5 g/dl (3.5-5.0); Albumin/Globulin Ratio 1.7 (1.1-1.8); Alkaline Phosphatase 68 U/L (38-126); Anion Gap 18.5 mEq/L (5-15); Aspartate Amino Transferase 20 U/L (14-36); Bilirubin,Total 0.7 mg/dl (0.2-1.3); Blood Urea Nitrogen 18 mg/dl (7-17); Calcium 9.9 mg/dl (8.4-10.2); Carbon Dioxide 26 mmol/L (22.0-30.0); Chloride 101 mmol/L (98-107); Estimated Glomerular Filt Rate 61 ml/min (>60); GFR (African American) 74 ML/MIN (>60); Globulin 2.6 g/dL (1.3-3.2); Glucose 136 mg/dl (74-100); Potassium 4.5 mmoL/L (3.5-5.1); Sodium 141 mmol/L (136-145); Total Protein,Serum 7.1 g/dl (6.3-8.2)
[2022-08-25 20:54] LABS: C-Reactive Protein 1.5 mg/L (0-4)
[2022-08-31 20:09] LABS: Lyme B. burgdorferi PCR Blood Negative (Negative)
== END ==
PROVIDERS: PCP Nurse Practitioner; Visit Provider Nurse Practitioner
DX: L08.9 Local infection of the skin and subcutaneous tissue, unspecified (principal); S80.869A Insect bite (nonvenomous), unspecified lower leg, initial encounter; W57.XXXA Bitten or stung by nonvenomous insect and other nonvenomous arthropods, initial encounter
CPT/HCPCS: 80053; 85025; 85651; 86140; 87476

== ENCOUNTER → 2022-09-28 10:04 | Outpatient (CLI) | payer MEDICARE, SELFPAY ==
[2022-09-28 19:01] LABS: Chloride 107 mmol/L (98-107); Sodium 145 mmol/L (136-145)
[2022-09-28 19:02] LABS: Potassium 4.7 mmoL/L (3.5-5.1)
[2022-09-28 19:04] LABS: Blood Urea Nitrogen 15 mg/dl (7-17); Estimated Glomerular Filt Rate 70 ml/min (>60); GFR (African American) 84 ML/MIN (>60)
[2022-09-28 19:05] LABS: Anion Gap 14.7 mEq/L (5-15); Calcium 9.9 mg/dl (8.4-10.2); Carbon Dioxide 28 mmol/L (22.0-30.0); Glucose 116 mg/dl (74-100)
== END ==
PROVIDERS: PCP Nurse Practitioner; Visit Provider Nurse Practitioner
DX: E11.9 Type 2 diabetes mellitus without complications (principal); Z79.84 Long term (current) use of oral hypoglycemic drugs
CPT/HCPCS: 80048

== ENCOUNTER → 2022-12-14 10:17 | Outpatient (CLI) | payer MEDICARE, SELFPAY ==
--- NOTE | 2022-12-14 10:26 | XR_ITS ---
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 swelling and pain x 2-3 days. no known trauma COMPARISON: None FINDINGS: LEFT FOOT Three views of the left foot demonstrate no acute fracture or dislocation. Moderate hypertrophic changes of the intertarsal and tarsometatarsal joints. There is a moderate plantar spur. The soft tissues are unremarkable. IMPRESSION: Moderate hypertrophic changes without acute bony abnormality. Reviewed, Interpreted and Dictated by Eliecer Bucio MD Transcribed by Sruthi Dee Authenticated and [facility]
[2022-12-14 11:05] LABS: Basophils # 0.1 K/mm3 (0-0.2); Basophils % 1.1 % (0.1-2.0); Eosinophils # 0.5 K/mm3 (0.0-0.4); Eosinophils % 6.4 % (0.1-12.0); Hematocrit 43.7 % (37.0-47.0); Hemoglobin 13.1 g/dL (12.2-16.2); Lymphocytes # 2.6 K/mm3 (0.7-4.5); Lymphocytes % 35.6 % (10-50); Mean Corpuscular HGB Conc 30.1 g/dL (31.8-35.4); Mean Corpuscular Volume 99.7 fl (81-99); Mean Platelet Volume 8.2 fl (7.4-10.4); Monocytes # 0.3 K/mm3 (0.1-1.0); Monocytes % 4.6 % (1.7-9.3); Neutrophils # 3.8 K/mm3 (1.8-7.8); Neutrophils % 52.3 % (37.0-80.0); Platelet Count 454 K/mm3 (142-424); Red Blood Count 4.38 M/mm3 (4.20-5.40); Red Cell Distribution Width 13.3 % (11.5-17.5); White Blood Count 7.2 K/mm3 (4.8-10.8)
== END ==
PROVIDERS: PCP Family Medicine; Visit Provider Nurse Practitioner
DX: D48.7 Neoplasm of uncertain behavior of other specified sites (principal); M79.672 Pain in left foot
CPT/HCPCS: 36415; 73630; 85025

== ENCOUNTER → 2022-12-19 14:25 | Outpatient (CLI) | payer MEDICARE, SELFPAY ==
--- NOTE | 2022-12-19 14:29 | US_ITS ---
FINAL REPORT CLINICAL HISTORY: neoplasm of uncertain behavior - left lateral foot COMPARISON: None FINDINGS: ULTRASOUND LEFT LATERAL FOOT: Ultrasound examination of the left lateral foot was performed in the region of a palpable nodule. No fluid collection or mass is noted in this region. No evidence of a focal mass is identified. IMPRESSION: No focal mass identified in the left lateral foot. Reviewed, Interpreted and Dictated by Tanika Mojica MD Transcribed by Georgina Munoz Authenticated and [facility]
== END ==
PROVIDERS: PCP Family Medicine; Visit Provider Nurse Practitioner
DX: D48.7 Neoplasm of uncertain behavior of other specified sites (principal); M79.672 Pain in left foot
CPT/HCPCS: 76882

== ENCOUNTER 2023-01-11 11:21 | Outpatient (RCR) | payer MEDICARE, SELFPAY | END 2023-01-11 13:00 | disposition home or self-care (01) | LOC: PT 11:21 | PROVIDERS: Visit Provider Podiatrist | DX: M79.672 Pain in left foot (principal) | CPT/HCPCS: 97760 ==

== ENCOUNTER → 2023-01-16 11:49 | Outpatient (CLI) | payer MEDICARE, SELFPAY ==
[2023-01-16 18:58] LABS: Hemoglobin A1C 7.6 % (4.0-6.0)
[2023-01-16 19:03] LABS: Alanine Aminotransferase 20 U/L (12-78); Albumin Level 4.4 g/dl (3.5-5.0); Albumin/Globulin Ratio 1.5 (1.1-1.8); Alkaline Phosphatase 68 U/L (38-126); Anion Gap 16.4 mEq/L (5-15); Aspartate Amino Transferase 22 U/L (14-36); Bilirubin,Total 0.4 mg/dl (0.2-1.3); Blood Urea Nitrogen 21 mg/dl (7-17); Calcium 9.8 mg/dl (8.4-10.2); Carbon Dioxide 24 mmol/L (22.0-30.0); Chloride 103 mmol/L (98-107); Chol/HDL Ratio 3.3 (1-3.5); Cholesterol 182 mg/dl (140-200); Estimated Glomerular Filt Rate 61 ml/min (>60); GFR (African American) 74 ML/MIN (>60); Globulin 2.9 g/dL (1.3-3.2); Glucose 150 mg/dl (74-100); HDL Cholesterol 55 mg/dl (40-60); Potassium 4.4 mmoL/L (3.5-5.1); Sodium 139 mmol/L (136-145); Total Protein,Serum 7.3 g/dl (6.3-8.2); Triglycerides 185 mg/dl (30-150); VLDL Cholesterol 37 mg/dL (0-40)
[2023-01-16 19:14] LABS: Direct LDL Cholesterol 87.88 mg/dL (100-129)
[2023-01-16 19:21] LABS: Free T4 (Free Thyroxine) 1.59 ng/dl (0.78-2.19)
[2023-01-16 19:23] LABS: 25-OH Vitamin D, Total 44.6 ng/mL (30-100)
[2023-01-16 19:34] LABS: Thyroid Stimulating Hormone 1.18 uIU/mL (0.465-4.68)
[2023-01-16 19:53] LABS: Vitamin B12 935 pg/mL (239-931)
== END ==
PROVIDERS: PCP Nurse Practitioner; Visit Provider Nurse Practitioner
DX: E03.9 Hypothyroidism, unspecified (principal); E11.9 Type 2 diabetes mellitus without complications; E53.8 Deficiency of other specified B group vitamins; E55.9 Vitamin D deficiency, unspecified; E78.5 Hyperlipidemia, unspecified; I10 Essential (primary) hypertension; Z79.84 Long term (current) use of oral hypoglycemic drugs
CPT/HCPCS: 80053; 80061; 82306; 82607; 83036; 84439; 84443

== ENCOUNTER → 2023-01-17 10:59 | Outpatient (CLI) | payer MEDICARE, SELFPAY ==
[2023-01-17 18:00] LABS: Coronavirus 19, PCR Not Detected (NotDetected); Influenza A, PCR Not Detected (NotDetected); Influenza B, PCR Not Detected (NotDetected)
== END ==
PROVIDERS: PCP Nurse Practitioner; Visit Provider Nurse Practitioner
DX: J06.9 Acute upper respiratory infection, unspecified (principal)
CPT/HCPCS: 87636

== ENCOUNTER 2023-02-24 08:54 | Day surgery (SDC) | payer MEDICARE, SELFPAY ==
[2023-02-24] MEDS: LACTATED RINGERS 1000ML 1,000 ML 100 ML IV (10:25)
[2023-02-24 10:29] VITALS: BP 129/65; PULSE 62; RESP 16; TEMP 36.6; O2SAT 96; BMI 26.6
[2023-02-24 10:35] LABS: POC Glucose,Bedside 176 (70-110)
--- NOTE | 2023-02-24 10:59 | P.PCN_ITS ---
Procedure: Date: 02/24/23 Patient Date of :: 1945 Procedure Performed:: Flexible sigmoidoscopy Indications:: Patient is a 77-year-old female whom I had seen in the past for colonoscopy. I originally saw her in 2015 for right-sided abdominal pain and performed colonoscopy on 01/12/2016. She was found to have ascending colon strictures which were dilated. She had transient relief of her symptoms and contrast enema was performed which was normal. I did a follow-up colonoscopy on 05/17/2016 and she had several focal strictures of the right colon which were dilated. She had multiple biopsies performed each time and these revealed nonspecific ulceration and granulation tissue. I had performed a total of 3 colonoscopies. Ultimately I had her undergo colonoscopy with Dr. Lira which was done 01/19/2018. He once again dilated right colon strictures which felt probable etiology to be resolved severe colitis versus NSAID induced colopathy. She has family history of colon cancer with her father having colon cancer at age 47. Performing Provider:: Paul De Santiago MD Referring Provider:: Hollie Mejia Sedation:: MAC sedation Procedure:: Patient history was obtained and appropriate physical examination was performed. Patient's medications and allergies were reviewed. Informed consent was obtained after explaining the benefits, alternatives, and risks of the procedure including, but not limited to, bleeding, perforation, missed lesions, and adverse reaction to anesthesia medications. Patient was transported to endoscopy procedure room. Patient was connected to monitoring devices. Throughout the procedure the patient's blood pressure, pulse, and oxygen saturations were monitored continuously. Patient identification and planned procedure were verified by the staff. Patient was positioned in lateral decubitus position. Digital anorectal exam was performed. Variable stiffness Olympus colonoscope was inserted. Advancement of the colonoscope was extremely difficult. She had findings of possible intermittent sigmoid volvulus with significant floppiness, tortuosity, and redundancy of the sigmoid colon. There appeared to be findings consistent with melanosis coli. Several times the colonoscope was advanced and patient became bradycardic requiring withdrawal of the colonoscope and anesthesia administration of Robinul. With prolonged attempts at advancement with abdomi nal pressure the colonoscope was unable to be advanced safely beyond the sigmoid colon. Due to concerns for possible perforation due to bowing of the colonoscope the procedure was terminated and the colonoscope was withdrawn. . Findings:: Significant atony and redundancy of the sigmoid colon with possible intermittent partial sigmoid volvulus Findings consistent with melanosis coli Recommendations:: Recommend rescheduling for colonoscopy with gastroenterology possibly with adult colonoscope. This will be arranged. Complications:: None immediately apparent Estimated blood obtained (mL): 0 Colonoscopy Component Colonoscopy Component Was a colonoscopy performed during today's procedure?: No
[2023-02-24 11:15] VITALS: O2SAT 99
--- NOTE | 2023-02-24 11:37 | EXP.ANES.CKL ---
[facility] Disclaimer: The information contained in this section may have been updated after the patient was seen, as this information can be updated by other users. Medical History Acquired hypothyroidism Allergic rhinitis Colon polyps COPD (chronic obstructive pulmonary disease) Diabetic foot Essential hypertension Facet arthropathy GERD (gastroesophageal reflux disease) Hyperlipemia Hyperlipidemia Hypertension TAVO (iron deficiency anemia) Keratosis Neoplasm of uncertain behavior of foot Osteoarthritis Tobacco abuse Type 2 diabetes mellitus without complications Vitamin B12 deficiency Vitamin D deficiency Surgical History History of colonoscopy Family History Other Family history of cancer Family history of diabetes mellitus Social History Smoking Status: Former smoker tobacco type: cigarettes packs per day: 3 second hand exposure: Yes alcohol intake: never substance use type: denies use current occupational status: retired Travel in the last 8 weeks: None household members: none housing: house current occupation: [employer] current occupational exposures/hazards: No caffeine: Yes [facility] Anesthesia Checklist Patient Identification Patient Identification: Arm Band Structural Data Admitted From: Home Planned Operative Procedure/s: colonoscopy Consent for Planned Operative Procedure(s) Verified: Yes Verified Documents: Surgical Consent and History and Physical NPO Status Verified Time NPO: 00:00 Additional verifications Anesthesia Reactions: No Hx Blood Transfusions: No Blood Transfusion Reaction: No Airway Assessment Mallampati Score:: Class II C-Spine Mobility Assessed: Yes TMJ Mobility Assessed: Yes Dentition: Good Dentition Neurological Assessment Level of Consciousness: Awake and Alert Anesthesia Plan Anesthesia Plan: Verified ASA Class: III Anesthesia Type: MAC
[2023-02-24 11:47] VITALS: BP 104/59; PULSE 83; RESP 16; TEMP 36.3; O2SAT 96
[2023-02-24 11:57] VITALS: BP 100/53; PULSE 80; RESP 17; O2SAT 95
[2023-02-24 12:07] VITALS: BP 125/76; PULSE 85; RESP 17; O2SAT 99
[2023-02-24 12:17] VITALS: BP 117/60; PULSE 84; RESP 17; O2SAT 96
== END 2023-02-24 12:20 | disposition home or self-care (01) ==
PROVIDERS: PCP Nurse Practitioner; Visit Provider Surgery
PROC: 0DJD8ZZ Inspection of Lower Intestinal Tract, Via Natural or Artificial Opening Endoscopic (ICD-10-PCS; principal; 2023-02-24 10:30)
DX: Z12.11 Encounter for screening for malignant neoplasm of colon (principal); Z53.09 Procedure and treatment not carried out because of other contraindication; Z86.010 Personal history of colon polyps; K56.2 Volvulus; R00.1 Bradycardia, unspecified; K59.89 Other specified functional intestinal disorders; K63.89 Other specified diseases of intestine; E11.9 Type 2 diabetes mellitus without complications
CPT/HCPCS: G0105; 82962

== ENCOUNTER → 2023-03-06 23:56 | Outpatient (CLI) | payer MEDICARE, SELFPAY ==
[2023-03-06 19:34] LABS: Microalbumin/Creatinine Ratio 111.2
[2023-03-06 19:40] LABS: Creatinine,Urine Random 33 mg/dL (Not Estab.)
== END ==
PROVIDERS: PCP Nurse Practitioner; Visit Provider Nurse Practitioner
DX: E11.9 Type 2 diabetes mellitus without complications (principal); Z79.84 Long term (current) use of oral hypoglycemic drugs
CPT/HCPCS: 82043; 82570

== ENCOUNTER 2023-07-04 07:43 | Day surgery (SDC) | payer MEDICARE, SELFPAY ==
[2023-06-30 10:46] VITALS: BMI 26.6
[2023-07-04 08:29] VITALS: BP 146/65; PULSE 64; RESP 17; TEMP 36.6; O2SAT 98
[2023-07-04] MEDS: TETRACAINE 0.5% OPTH SOL 15ML OP (08:47)
[2023-07-04] MEDS: APRACLONIDINE 0.5% OPHTH SOLN 5ML OP (08:47)
[2023-07-04] MEDS: TROPICAMIDE 1% OPTH SOLN 2ML OP (08:48)
[2023-07-04] MEDS: PHENYLEPHRINE 2.5% OPHTH SOLN 2ML 0.0500000000000000028 ML OP (08:48)
[2023-07-04 09:00] LABS: POC Glucose,Bedside 141 (70-110)
--- NOTE | 2023-07-04 12:51 | HMH.PROCNOTE ---
[facility] Procedure Note Date: 07/04/23 Time: 12:51 Procedure Note:: Preoperative diagnosis: Posterior Opacification left eye Postoperative diagnosis: same Operation: YAG Laser Capsulotomy The patient has undergone uneventful cataract surgery in the past. The patient has noticed that the vision has decreased from the previous good level postop. The patient reports that he/she is having trouble reading and/or driving or that glare is giving them a problem. On exam, the patient was found to have visually significant posterior capsular opacification. The treatment options, risks and benefits were explained and the patient elected to have YAG laser capsulotomy in an attempt to improve the vision. Of note, the best corrected visual acuity is in the 23/30 or worse range by refraction or glare testing. The eye was dilated and 1 drop of 0.5% Iopidine applied. YAG laser energy was applied to the posterior capsular bag with good formation of an opening and no complications were noted. The patient will be seen back for follow up in 2 weeks. 112 pulses and 414mj
== END 2023-07-04 12:10 | disposition home or self-care (01) ==
PROVIDERS: Visit Provider Ophthalmology
PROC: (CPT 66821; principal; 2023-07-04 09:00)
DX: H26.492 Other secondary cataract, left eye (principal); H53.8 Other visual disturbances; Z96.1 Presence of intraocular lens; E11.9 Type 2 diabetes mellitus without complications
CPT/HCPCS: 66821; 82962